=== PATIENT | female | born 1960 | race Caucasian/White ===

== ENCOUNTER 2019-11-23 12:02 | Inpatient (IN) | payer BC ==
[2019-11-23 12:48] LABS: VENOUS BLOOD BASE EXCESS -13.6 mmol/L; VENOUS BLOOD HCO3 12.9 mmol/L (20-32); VENOUS BLOOD PCO2 33.7 mmHg (35-63); VENOUS BLOOD PH 7.2 (7.30-7.42)
[2019-11-23 12:57] LABS: APPEARANCE,URINE CLEAR; BILIRUBIN,URINE NEGATIVE (NEGATIVE); COLOR,URINE YELLOW; GLUCOSE, URINE NEGATIVE (NEGATIVE); KETONES,URINE NEGATIVE (NEGATIVE); LEUKOCYTE ESTERASE,URINE NEGATIVE (NEGATIVE); NITRITE,URINE NEGATIVE (NEGATIVE); PROTEIN,URINE NEGATIVE (NEGATIVE); URINE SPECIFIC GRAVITY 1.011; UROBILINOGEN,URINE NEGATIVE mg/dL (<2.0)
[2019-11-23] MEDS ORDERED: NORMAL SALINE 250 ML IV PRN (13:02)
[2019-11-23] MEDS ORDERED: DEXTROSE 5%-LACTATED RINGERS 1,000 ML IV ONE (13:15)
[2019-11-23] MEDS ORDERED: THIAMINE HCL INJ 200 MG/2 ML VIAL IV ONE (13:23)
[2019-11-23 13:30] LABS: RED BLOOD COUNT 1.13 10^6/uL (3.72-5.28); WHITE BLOOD COUNT 8.9 10^3/uL (4.0-10.5)
[2019-11-23 13:32] LABS: MEAN CORPUSCULAR HEMOGLOBIN 22.9 pg (27.0-33.4); MEAN CORPUSCULAR HGB CONC 29.9 g/dL (32.0-36.0); MEAN CORPUSCULAR VOLUME 77 fl (80-97); PLATELET COUNT 187 10^3/uL (150-450); RED CELL DISTRIBUTION WIDTH 33.1 % (11.5-14.0)
[2019-11-23 13:35] LABS: HEMOGLOBIN 2.6 g/dL (12.0-15.5)
[2019-11-23 13:36] LABS: HEMATOCRIT 8.7 % (36.0-47.0)
[2019-11-23 13:39] LABS: ABSOLUTE LYMPHOCYTES# (MANUAL) 0.8 10^3/uL (0.5-4.7); ABSOLUTE MONOCYTES # (MANUAL) 0.1 10^3/uL (0.1-1.4); BASOPHILS % (MANUAL) 0 % (0-2); EOSINOPHILS % (MANUAL) 0 % (0-6); LYMPHOCYTES % (MANUAL) 9 % (13-45); MONOCYTES % (MANUAL) 1 % (3-13); NUCLEATED RED BLOOD CELLS 5 /100 WBC (0); SEGMENTED NEUTROPHILS % (MAN) 90 % (42-78); TOTAL CELLS COUNTED 100
[2019-11-23 13:40] LABS: ALBUMIN 2.4 g/dL (3.5-5.0); ALKALINE PHOSPHATASE 487 U/L (38-126); ANION GAP 11 (5-19); ASPARTATE AMINO TRANSFERASE 222 U/L (14-36); BILIRUBIN,DIRECT 0.4 mg/dL (0.0-0.4); BILIRUBIN,TOTAL 0.7 mg/dL (0.2-1.3); BLOOD UREA NITROGEN 97 mg/dL (7-20); CARBON DIOXIDE 11 mmol/L (22-30); CHLORIDE 113 mmol/L (98-107); CREATINE KINASE 578 U/L (30-135); GLUCOSE 87 mg/dL (75-110); TOTAL PROTEIN 4.5 g/dL (6.3-8.2)
[2019-11-23 13:43] LABS: ANISOCYTOSIS 4+; BURR CELLS 1+; HYPOCHROMASIA 1+; POIKILOCYTOSIS 2+; SCHISTOCYTES 2+; TARGET CELLS 1+; TEAR DROP CELLS 1+
[2019-11-23 13:44] LABS: PLATELET COMMENT ADEQUATE
[2019-11-23 13:51] LABS: CALCIUM 6.9 mg/dL (8.4-10.2)
--- NOTE | 2019-11-23 14:03 | RADIOLOGY REPORT (SQ) ---
EXAM DESCRIPTION: CHEST SINGLE VIEW IMAGES COMPLETED DATE/TIME: 11/23/2019 1:48 pm REASON FOR STUDY: hypothermia, anemia, UGI bleed COMPARISON: None. EXAM PARAMETERS: NUMBER OF VIEWS: One view. TECHNIQUE: Single frontal radiographic view of the chest acquired. RADIATION DOSE: NA LIMITATIONS: None. FINDINGS: LUNGS AND PLEURA: Lung saenz are hyperexpanded. No consolidation or pleural effusions. No pneumothorax. MEDIASTINUM AND HILAR STRUCTURES: No masses. Contour normal. HEART AND VASCULAR STRUCTURES: Heart is enlarged. No failure. BONES: No acute findings. HARDWARE: None in the chest. OTHER: No other significant finding. IMPRESSION: Cardiomegaly. COPD. No failure or consolidation. TECHNICAL DOCUMENTATION: JOB ID: [id number] 2010 [employer]- All Rights Reserved Reading location - IP/workstation name: ROSE MARY
[2019-11-23] MEDS ORDERED: DEXTROSE 50%-WATER 25 GM/50 ML DISP.SYRIN IV PRN ×2 (17:06)
[2019-11-23] MEDS ORDERED: MAG HYDROX/AL HYDROX/SIMETH SUSP 30 ML UDCUP PO PRN (17:06)
[2019-11-23] MEDS ORDERED: IPRATROPIUM/ALBUTEROL 0.5-2.5 MG/3 ML AMPUL NEB PRN (17:06)
[2019-11-23] MEDS ORDERED: DEXTROSE 5%-LACTATED RINGERS 1,000 ML IV PRN (17:06)
[2019-11-23] MEDS ORDERED: ONDANSETRON HCL INJ/PF 4 MG/2 ML SDV IV PRN (17:06)
[2019-11-23] MEDS ORDERED: GLUCAGON,HUMAN RECOMB 1 MG INJ SUBCUT PRN (17:06)
[2019-11-23] MEDS ORDERED: DEXTROSE 40% GEL 15 GM TUBE PO PRN ×2 (17:06)
[2019-11-23] MEDS ORDERED: ACETAMINOPHEN 650 MG SUPP.RECT PR PRN (17:06)
[2019-11-23] MEDS ORDERED: ACETAMINOPHEN 325 MG TABLET PO PRN (17:06)
[2019-11-23] MEDS ORDERED: NORMAL SALINE 100 ML with PANTOPRAZOLE SODIUM 80 MG IV PRN ×2 (17:37)
--- NOTE | 2019-11-23 17:46 | ER Document Report ---
Entered by RADHA GOMEZ SCRIBE 11/23/19 1218 Acting as scribe for:YADI YARBROUGH MD ED General - General Chief Complaint: Low Blood Sugar Stated Complaint: BLOOD SUGAR ISSUES/ALTERED MENTAL STATUS Time Seen by Provider: 11/23/19 12:10 Information source: Patient, Emergency Med Personnel Notes: This 59-year-old female presents to the emergency department via EMS after a fall about 3 hours ago. EMS reports that patient has been living with her daughter for the past two months and daughter states that patient has been noncompliant with her medication for almost two years. Daughter reports to EMS that over the past two weeks patient has been noticeably weaker. Daughter states that patient has not been able to ambulate on her own. Daughter said that this morning she had to help patient to the commode at around 2AM. Daughter said that the next time she saw the patient, she was on the floor at around 10 AM. Daughter reports that patient was at baseline prior to two weeks ago. At baseline, patient is alert and has a normal gait. EMS states that patient was only responsive to pain and was covered with foul-smelling urine when they arrived. EMS said that patient was verbal but not coherent. Patient states that she is "very hungry" and tired at this time. Past Medical History - General Information source: Patient - Social History Smoking Status: Current Every Day Smoker Cigarette use (# per day): Yes - 1 pack per day Chew tobacco use (# tins/day): No Lives with: Family Family History: Reviewed & Not Pertinent Review of Systems - Review of Systems Constitutional: See HPI, Fever, Weakness EENT: No symptoms reported Cardiovascular: No symptoms reported Respiratory: No symptoms reported Gastrointestinal: No symptoms reported Genitourinary: No symptoms reported Female Genitourinary: No symptoms reported Musculoskeletal: No symptoms reported Skin: No symptoms reported Hematologic/Lymphatic: No symptoms reported Neurological/Psychological: See HPI, Weakness, Gait changes -: Yes All other systems reviewed and negative Physical Exam - Vital signs Vitals: Resp 18 11/23/19 12:24 - General General appearance: Other - Cachectic In distress: Mild - HEENT Head: Normocephalic, Atraumatic Extraocular movements intact: Yes Pupils: PERRL Pharynx: Normal Neck: Normal - Respiratory Respiratory status: No respiratory distress Breath sounds: Normal - Cardiovascular Rhythm: Regular - Abdominal Inspection: Normal Distension: No distension Bowel sounds: Normal Tenderness: Nontender - Back Back: Normal, Nontender - Extremities General upper extremity: Normal inspection, Nontender General lower extremity: Nontender, Edema - Trace pitting 1+ edema - Neurological Cognition: Normal Orientation: AAOx4 - On intial exam was oriented after a few units of blood, patient is now not coherent or oriented. Speech: Normal - nml on initial exam. Now not coherent. - Psychological Associated symptoms: Normal affect, Normal mood - Skin Skin Temperature: Cool - on initial exam was cool to the touch then warm after blood was administered. Skin Moisture: Dry Skin Color: Pale Course - Vital Signs Vital signs: Temp Pulse Resp BP Pulse Ox 98.6 F 62 23 H 133/90 H 100 11/23/19 17:15 11/23/19 14:22 11/23/19 17:15 11/23/19 17:11 11/23/19 17:15 - Laboratory Result Diagrams: 11/23/19 13:07 11/23/19 13:07 Laboratory results interpreted by me: 11/23/19 11/23/19 11/23/19 12:23 12:25 12:25 RBC Hgb Hct MCV MCH MCHC RDW Seg Neuts % (Manual) Lymphocytes % (Manual) Monocytes % (Manual) VBG pH 7.20 L VBG pCO2 33.7 L VBG HCO3 12.9 L Sodium Chloride Carbon Dioxide BUN Creatinine Est GFR ( Amer) Est GFR (MDRD) Non-Af POC Glucose 124 H Calcium AST ALT Alkaline Phosphatase Creatine Kinase Total Protein Albumin Crossmatch See Detail 11/23/19 11/23/19 13:07 13:07 RBC 1.13 L Hgb 2.6 L* Hct 8.7 L* MCV 77 L MCH 22.9 L MCHC 29.9 L RDW 33.1 H Seg Neuts % (Manual) 90 H Lymphocytes % (Manual) 9 L Monocytes % (Manual) 1 L VBG pH VBG pCO2 VBG HCO3 Sodium 134.9 L Chloride 113 H Carbon Dioxide 11 L BUN 97 H Creatinine 1.49 H Est GFR ( Amer) 44 L Est GFR (MDRD) Non-Af 36 L POC Glucose Calcium 6.9 L* AST 222 H ALT 110 H Alkaline Phosphatase 487 H Creatine Kinase 578 H Total Protein 4.5 L Albumin 2.4 L Crossmatch - Diagnostic Test Radiology reviewed: Image reviewed, Reports reviewed - Chest x-ray showed cardiomegaly with COPD - EKG Interpretation by Me EKG shows normal: Sinus rhythm, [place], QRS Complexes. abnormal: Intervals - Borderline prolonged QT interval, ST-T Waves - Nonspecific lateral T abnormalities Rate: Normal - 59 Rhythm: NSR When compared to previous EKG there are: Previous EKG unavailable - Consults Dr. Rachel Time consulted: 14:45 Consulted provider: will come to ER Critical Care Note - Critical Care Note Total time excluding time spent on procedures (mins): 45 Discharge - Discharge Clinical Impression: Hypoglycemia Gastrointestinal tract bleed Qualifiers: GI bleed type/associated pathology: melena Qualified Code(s): K92.1 - Melena Anemia Qualifiers: Anemia type: iron deficiency Iron deficiency anemia type: chronic blood loss Qualified Code(s): D50.0 - Iron deficiency anemia secondary to blood loss (chronic) Hypothermia Qualifiers: Encounter type: initial encounter Qualified Code(s): T68.XXXA - Hypothermia, initial encounter Condition: Stable Disposition: ADMITTED INPATIENT Admitting Provider: Virginie (Hospitalist) Unit Admitted: IMCU I personally performed the services described in the documentation, reviewed and edited the documentation which was dictated to the scribe in my presence, and it accurately records my words and actions.
--- NOTE | 2019-11-23 18:29 | PDOC H&P ---
History of Present Illness Admission Date/PCP: 11/23/19 15:54 Patient complains of: Found down at home History of Present Illness: EARNEST DRAPER is a 59 year old female with a long and very complicated past medical history. This includes perforated ulcer with partial gastrectomy. Partial colectomy. She has had pancreatitis. She was an alcoholic but supposedly stopped drinking in 1999 999. She still smokes 1 pack a day. She has a history of methamphetamine use in the . She abuses aspirin products. She crushes headache tablets that contain caffeine and aspirin and takes 2 of those at bedtime. She was complaining of head and neck pain abdominal pain last week. She has also exhibited severe weight loss. Her weight 12 months ago was 130 pounds. It has continuously trickled down and now she weighs 31 kg. The patient moved from [place] to be with her daughter locally. She has been here for about the last 6 weeks. The and daughter report that the patient refuses to take prescription medications. She hardly uses [id number] products. She has a long history of severe depression and was on Celexa in the past as well as medication for hypertension. She stopped taking those. She went into a deep depression when she found out that her sister had stage IV small cell lung cancer in 2019. Her mother, brother and I believe 2 sisters all have lung cancer. She has been feeling progressively worse over the last week. As noted above she complained of stomach pain as well as headache and neck pain. Evidently she was taking an increased number of the headache pills. Her appetite has been extremely poor. 2 days ago she was found half out of a recliner that she slept in. Today the patient's daughter states that she was sleeping on the couch and this morning she found her on the floor wrapped in a blanket soaked with her own urine. EMS called and they found her to be confused. Her glucose was 26. Evaluation in the emergency department also revealed hypothermia and severe anemia with a hemoglobin of 2.6. She is encephalopathic as well as having elevated transaminases. She is crying out and is unable to give much history. She was started on dextrose containing fluid, is receiving 3 units of packed red blood cells and has a heating blanket in place. She will be admitted to [facility] with an aggressive complex treatment plan. I did have an extensive discussion with the patient's and daughter. Her CODE STATUS will be DNR at this time. Past Medical History Cardiac Medical History: Reports: Hypertension Pulmonary Medical History: Reports: Chronic Obstructive Pulmonary Disease (COPD), Respiratory Failure EENT Medical History: Denies: Ears, Nose, Throat Neurological Medical History: Denies: Hemorrhagic CVA, Ischemic CVA, Seizures Endocrine Medical History: Denies: Diabetes Mellitus Type 1, Diabetes Mellitus Type 2, Hypothyroidism Renal/ Medical History: Denies: Chronic Kidney Disease Malignancy Medical History: Reports: None GI Medical History: Reports: Peptic Ulcer Disease, Other - Pancreatitis Musculoskeltal Medical History: Reports: Arthritis Psychiatric Medical History: Reports: Alcohol Dependency, Depression, Substance Abuse, Tobacco Dependency Hematology: Reports: Anemia Past Surgical History Past Surgical History: Reports: Cholecystectomy, Hysterectomy, Splenectomy, Other - Partial colectomy, partial gastrectomy, oophorectomy Social History Information Source: Relative - and daughter Lives with: Family Smoking Status: Current Every Day Smoker Cigarettes Packs Per Day: 1 Electronic Cigarette use?: No Frequency of Alcohol Use: None - History of severe alcoholism. Stopped 2009 Hx Recreational Drug Use: Yes Drugs: Other - Methamphetamine Hx Prescription Drug Abuse: No - Advance Directive Resuscitation Status: Do Not Resuscitate Surrogate healthcare decision maker:: Lengthy discussion with Sourav and daughter Cris Family History Family History: Malignancy - Multiple relatives with lung cancer, Other - Alcoholism and cirrhosis Parental Family History Reviewed: Yes Children Family History Reviewed: Yes Sibling(s) Family History Reviewed.: Yes Medication/Allergy Home Medications: No Home Medications 11/23/19 Allergies/Adverse Reactions: No Known Allergies Allergy (Unverified 11/23/19 18:58) Review of Systems ROS unobtainable: Due to mental status Physical Exam Vital Signs: Temp Pulse Resp BP Pulse Ox 98.3 F 80 16 135/77 H 100 11/23/19 18:00 11/23/19 17:45 11/23/19 18:00 11/23/19 17:51 11/23/19 18:00 Intake & Output 11/22/19 11/23/19 11/24/19 06:59 06:59 06:59 Intake Total 600 Output Total 400 Balance 200 Weight 31.751 kg General appearance: PRESENT: thin, well-developed, other - Well-developed but severely cachectic 59-year-old female in moderate distress. She looks older than her stated age. Head exam: PRESENT: atraumatic, normocephalic, other - Temporal wasting, sunken eye sockets Eye exam: PRESENT: conjunctiva pale, other - Pupils react to light but patient unable to participate in full eye exam Ear exam: PRESENT: normal external ear exam. ABSENT: bleeding, drainage Mouth exam: PRESENT: dry mucosa, tongue midline Teeth exam: PRESENT: edentulous Neck exam: ABSENT: carotid bruit, JVD, lymphadenopathy, thyromegaly Respiratory exam: PRESENT: clear to auscultation cyrus, prolonged expiratory phas, symmetrical, unlabored. ABSENT: rales, rhonchi, wheezes Cardiovascular exam: PRESENT: RRR, +S1, +S2. ABSENT: diastolic murmur, irregular rhythm, systolic murmur Pulses: PRESENT: normal carotid pulses, normal radial pulses, normal dorsalis pedis pul GI/Abdominal exam: PRESENT: diminished bowel sounds, soft, other - Scaphoid abdomen. ABSENT: distended, guarding, tenderness Rectal exam: PRESENT: deferred, other - Hemoccult positive per emergency department provider Gentrourinary exam: PRESENT: indwelling catheter Extremities exam: ABSENT: joint swelling, pedal edema Musculoskeletal exam: PRESENT: other - Marked muscle wasting. ABSENT: deformity Neurological exam: PRESENT: altered, awake, other - Unable to fully assess. ABS ENT: alert, oriented to person, oriented to place, oriented to time, oriented to situation Psychiatric exam: PRESENT: agitated, unusual affect Skin exam: PRESENT: dry, pallor. ABSENT: jaundice, petechiae, warm Results Laboratory Results: 11/23/19 13:07 11/23/19 13:07 11/23/19 11/23/19 11/23/19 12:25 12:25 12:25 WBC Cancelled RBC Cancelled Hgb Cancelled Hct Cancelled MCV Cancelled MCH Cancelled MCHC Cancelled RDW Cancelled Plt Count Cancelled Seg Neutrophils % Cancelled VBG pH 7.20 L VBG pCO2 33.7 L VBG HCO3 12.9 L VBG Base Excess -13.6 Sodium Cancelled Potassium Cancelled Chloride Cancelled Carbon Dioxide Cancelled Anion Gap Cancelled BUN Cancelled Creatinine Cancelled Est GFR ( Amer) Cancelled Est GFR (Non-Af Amer) Cancelled Glucose Cancelled Calcium Cancelled Magnesium Total Bilirubin Cancelled AST Cancelled Alkaline Phosphatase Cancelled Total Protein Cancelled Albumin Cancelled TSH Urine Color Urine Appearance Urine pH Ur Specific [place] Urine Protein Urine Glucose (UA) Urine Ketones Urine Blood Urine Nitrite Ur Leukocyte Esterase Urine WBC (Auto) Urine RBC (Auto) Blood Type Antibody Screen 11/23/19 11/23/19 11/23/19 12:25 12:25 13:07 WBC 8.9 RBC 1.13 L Hgb 2.6 L* Hct 8.7 L* MCV 77 L MCH 22.9 L MCHC 29.9 L RDW 33.1 H Plt Count 187 Seg Neutrophils % Not Reportable VBG pH VBG pCO2 VBG HCO3 VBG Base Excess Sodium Potassium Chloride Carbon Dioxide Anion Gap BUN Creatinine Est GFR ( Amer) Est GFR (Non-Af Amer) Glucose Calcium Magnesium Total Bilirubin AST Alkaline Phosphatase Total Protein Albumin TSH Urine Color YELLOW Urine Appearance CLEAR Urine pH 5.0 Ur Specific [place] 1.011 Urine Protein NEGATIVE Urine Glucose (UA) NEGATIVE Urine Ketones NEGATIVE Urine Blood NEGATIVE Urine Nitrite NEGATIVE Ur Leukocyte Esterase NEGATIVE Urine WBC (Auto) 1 Urine RBC (Auto) 1 Blood Type A POSITIVE Antibody Screen NEGATIVE 11/23/19 11/23/19 11/23/19 13:07 13:07 13:07 WBC RBC Hgb Hct MCV MCH MCHC RDW Plt Count Seg Neutrophils % VBG pH VBG pCO2 VBG HCO3 VBG Base Excess Sodium 134.9 L Potassium 5.0 Chloride 113 H Carbon Dioxide 11 L Anion Gap 11 BUN 97 H Creatinine 1.49 H Est GFR ( Amer) 44 L Est GFR (Non-Af Amer) Glucose 87 Calcium 6.9 L* Magnesium 2.6 H Total Bilirubin 0.7 AST 222 H Alkaline Phosphatase 487 H Total Protein 4.5 L Albumin 2.4 L TSH 1.87 Urine Color Urine Appearance Urine pH Ur Specific [place] Urine Protein Urine Glucose (UA) Urine Ketones Urine Blood Urine Nitrite Ur Leukocyte Esterase Urine WBC (Auto) Urine RBC (Auto) Blood Type Antibody Screen 11/23/19 11/23/19 11/23/19 12:25 12:25 13:07 Creatine Kinase Cancelled 578 H Troponin I Cancelled 11/23/19 13:07 Creatine Kinase Troponin I < 0.012 Impressions: Chest X-Ray 11/23/19 13:19 IMPRESSION: Cardiomegaly. COPD. No failure or consolidation. Assessment and Plan - Diagnosis (1) Gastrointestinal hemorrhage Qualifiers: GI bleed type/associated pathology: melena Qualified Code(s): K92.1 - Melena Is this a current diagnosis for this admission?: Yes Plan: 11/23/2019 Patient has a history of perforated gastric ulcer with partial gastrectomy. She tends to abuse aspirin-containing products. She still smokes 1 pack of cigarettes daily. She has been eating very little. Most likely source of bleeding upper GI tract. I discussed the case with Dr. Peyton Landry. He will be performing upper endoscopy tomorrow. (2) Acute blood loss anemia Is this a current diagnosis for this admission?: Yes Plan: 11/23/2019 Hemoglobin was 2.6 on admission. I discussed the case with Dr. Carranza. She will be seeing the patient in the morning. We did discuss the addition of certain laboratory studies. This bleeding has likely been ongoing for many months. There may be an iron deficiency component to it. Iron studies are pending. She received 3 units of packed red blood cells. Hemoglobin is below 6 she will receive 2 additional units. (3) Hypoglycemia Is this a current diagnosis for this admission?: Yes Plan: 11/23/2019 The patient has not been eating much at all. She has experienced significant weight loss. She will be getting dextrose containing fluids along with Accu-Cheks and hypoglycemia protocol. (4) Elevated transaminase measurement Is this a current diagnosis for this admission?: Yes Plan: 11/23/2019 The patient has a history of severe alcoholism in the past. She stopped drinking 10 years ago however her reports that she occasionally will bring several bottles of wine. There is likely a component of cirrhosis. We will be scanning the abdominal cavity to further investigate her weight loss considering her strong family history of malignancy. She will be receiving IV fluids, blood and will have serial laboratory studies drawn. (5) Hypocalcemia Is this a current diagnosis for this admission?: Yes Plan: 11/23/2019 Most likely secondary to extremely poor nutritional status. We will check an ionized calcium. We are correcting for her low albumin the serum calcium is not normal. We can provide calcium supplementation if needed. (6) Severe protein-calorie malnutrition Is this a current diagnosis for this admission?: Yes Plan: 11/23/2019 The patient has probably experienced a 30 kg weight loss over the last year according to my discussion with her and daughter. Her BMI is only 15. Her daughter reports that she hardly eats any of her meals. She notes that she has been quite weak and recently has been falling. She has had to help her get up from the toilet. This constellation of findings qualifies for severe protein calorie malnutrition. We will have the dietitian see the patient. If the patient cannot maintain adequate nutrition consider a Dobbhoff tube however we would discuss this with patient and family first (7) Metabolic encephalopathy Is this a current diagnosis for this admission?: Yes Plan: 11/23/2019 Severe metabolic encephalopathy is likely combination of be hypoglycemia, profound anemia and hypothermia. We will continue to monitor and evaluate the patient through her course of treatment. I expect that this will improve. Her did state that she can yell out and behave strangely at home. This may be related to her history of alcoholism but there are too many confounding abnormalities to be sure. (8) Hypothermia Qualifiers: Encounter type: initial encounter Qualified Code(s): T68.XXXA - Hypothermia, initial encounter Is this a current diagnosis for this admission?: Yes Plan: 11/23/2019 The hypothermia is likely due to the decreased muscle mass. She was found down and her creatinine kinase is slightly elevated. It was unclear but she may have been found down without a blanket on. She was soaked in urine admits certainly could have a cooling effect. She is under a warming blanket and I have asked them to use the fluid warmer with her intravenous fluids. In addition she will receive stress doses of Solu-Cortef and I have ordered a random cortisol level. (9) Acute kidney injury Is this a current diagnosis for this admission?: Yes Plan: 11/23/2019 The serum creatinine is up. I do not have old blood work to compare. It is likely related to poor fluid and nutrition intake. She also has a slightly elev ated creatinine phosphokinase which likely reflects mild rhabdomyolysis. We will administer IV fluids and reassess renal function regularly. (10) Rhabdomyolysis Qualifiers: Rhabdomyolysis type: traumatic Encounter type: initial encounter Qualified Code(s): T79.6XXA - Traumatic ischemia of muscle, initial encounter Is this a current diagnosis for this admission?: Yes Plan: 11/23/2019 The patient was found down and this is likely the source of the rhabdo. We will monitor serum creatinine kinase levels. With IV fluids this should improve. (11) Cachexia Is this a current diagnosis for this admission?: Yes Plan: 11/23/2019 There is a very strong family history of malignancy. Mother, brother and medical week 2 of her sisters all have had lung cancer. Hematology/oncology will be seeing the patient for the severe anemia but underlying malignancy is clearly a concern. Further evaluation to follow. The registered dietitian will also be reviewing the case. (12) Tobacco dependence due to cigarettes Is this a current diagnosis for this admission?: Yes Plan: 11/23/2019 At some point consider nicotine patch. At this point it is clinically irrelevant due to the severity of the patient's illness - Time Time Spent with patient: 35 or more minutes Medications reviewed and adjusted accordingly: Yes - Inpatient Certification Based on my medical assessment, after consideration of the patient's comorbidities, presenting symptoms, or acuity I expect that the services needed warrant INPATIENT care.: Yes I certify that my determination is in accordance with my understanding of Medicare's requirements for reasonable and necessary INPATIENT services [42 CFR 412.3e].: Yes Medical Necessity: Need Close Monitoring Due to Risk of Patient Decompensation, Need For IV Fluids, Need For Continuous Telemetry Monitoring, Need for Pain Control, Need for IV Antibiotics, Need for Surgery, Risk of Complication if Not Cared For in Hospital Post Hospital Care: D/C Outsole Leveler Documentation
[2019-11-23] MEDS ORDERED: ALBUMIN HUMAN 12.5 GM/50 ML RTUINJ IV ONE (20:00)
[2019-11-23] MEDS: MORPHINE SULFATE 10 MG/ML INJ IV PRN (20:12)
--- NOTE | 2019-11-23 20:22 | PDOC CONSULTATION ---
Consultation Consult Date: 11/23/19 Attending physician:: VITOR RODRIGUEZ Provider Consulted: MAGDALENO TALAVERA Consult reason:: anemia History of Present Illness Admission Date/PCP: 11/23/19 15:54 History of Present Illness: EARNEST DRAPER is a 59 year old female This 59-year-old female presents to the emergency department via EMS after a fall about 3 hours ago. EMS reports that patient has been living with her daughter for the past two months and daughter states that patient has been noncompliant with her medication for almost two years. Daughter reports to EMS that over the past two weeks patient has been noticeably weaker. Daughter states that patient has not been able to ambulate on her own. Daughter said that this morning she had to help patient to the commode at around 2AM. Daughter said that the next time she saw the patient, she was on the floor at around 10 AM. Daughter reports that patient was at baseline prior to two weeks ago. At baseline, patient is alert and has a normal gait. EMS states that patient was only responsive to pain and was covered with foul-smelling urine when they arrived. EMS said that patient was verbal but not coherent. Patient states that she is "very hungry" and tired at this time Social History Smoking Status: Current Every Day Smoker Family History Parental Family History Reviewed: No Children Family History Reviewed: NA Sibling(s) Family History Reviewed.: NA Medication/Allergy Home Medications: No Home Medications 11/23/19 Allergies/Adverse Reactions: No Known Allergies Allergy (Unverified 11/23/19 18:58) Review of Systems ROS unobtainable: Other - mental status Physical Exam Vital Signs: Temp Pulse Resp BP Pulse Ox 98.6 F 62 23 H 133/90 H 100 11/23/19 17:15 11/23/19 14:22 11/23/19 17:15 11/23/19 17:11 11/23/19 17:15 Intake & Output 11/22/19 11/23/19 11/24/19 06:59 06:59 06:59 Intake Total 600 Output Total 400 Balance 200 Weight 31.751 kg General appearance: PRESENT: disheveled, thin, other - cachetic Head exam: PRESENT: atraumatic Eye exam: PRESENT: EOMI, PERRLA Ear exam: PRESENT: normal external ear exam Mouth exam: PRESENT: dry mucosa Teeth exam: PRESENT: poor dentation Neck exam: PRESENT: full ROM Respiratory exam: PRESENT: clear to auscultation cyrus Cardiovascular exam: PRESENT: RRR Pulses: PRESENT: normal femoral pulses, normal dorsalis pedis pul Vascular exam: PRESENT: normal capillary refill GI/Abdominal exam: PRESENT: other - scaphoid Rectal exam: PRESENT: heme (+) stool Gentrourinary exam: PRESENT: indwelling catheter Extremities exam: PRESENT: full ROM Musculoskeletal exam: PRESENT: full ROM Neurological exam: PRESENT: altered, awake Skin exam: PRESENT: dry Results Laboratory Results: 11/23/19 13:07 11/23/19 13:07 11/23/19 11/23/19 11/23/19 12:25 12:25 12:25 WBC Cancelled RBC Cancelled Hgb Cancelled Hct Cancelled MCV Cancelled MCH Cancelled MCHC Cancelled RDW Cancelled Plt Count Cancelled Seg Neutrophils % Cancelled VBG pH 7.20 L VBG pCO2 33.7 L VBG HCO3 12.9 L VBG Base Excess -13.6 Sodium Cancelled Potassium Cancelled Chloride Cancelled Carbon Dioxide Cancelled Anion Gap Cancelled BUN Cancelled Creatinine Cancelled Est GFR ( Amer) Cancelled Est GFR (Non-Af Amer) Cancelled Glucose Cancelled Calcium Cancelled Total Bilirubin Cancelled AST Cancelled Alkaline Phosphatase Cancelled Total Protein Cancelled Albumin Cancelled TSH Urine Color Urine Appearance Urine pH Ur Specific [place] Urine Protein Urine Glucose (UA) Urine Ketones Urine Blood Urine Nitrite Ur Leukocyte Esterase Urine WBC (Auto) Urine RBC (Auto) Blood Type Antibody Screen 11/23/19 11/23/19 11/23/19 12:25 12:25 13:07 WBC 8.9 RBC 1.13 L Hgb 2.6 L* Hct 8.7 L* MCV 77 L MCH 22.9 L MCHC 29.9 L RDW 33.1 H Plt Count 187 Seg Neutrophils % Not Reportable VBG pH VBG pCO2 VBG HCO3 VBG Base Excess Sodium Potassium Chloride Carbon Dioxide Anion Gap BUN Creatinine Est GFR ( Amer) Est GFR (Non-Af Amer) Glucose Calcium Total Bilirubin AST Alkaline Phosphatase Total Protein Albumin TSH Urine Color YELLOW Urine Appearance CLEAR Urine pH 5.0 Ur Specific [place] 1.011 Urine Protein NEGATIVE Urine Glucose (UA) NEGATIVE Urine Ketones NEGATIVE Urine Blood NEGATIVE Urine Nitrite NEGATIVE Ur Leukocyte Esterase NEGATIVE Urine WBC (Auto) 1 Urine RBC (Auto) 1 Blood Type A POSITIVE Antibody Screen NEGATIVE 11/23/19 11/23/19 13:07 13:07 WBC RBC Hgb Hct MCV MCH MCHC RDW Plt Count Seg Neutrophils % VBG pH VBG pCO2 VBG HCO3 VBG Base Excess Sodium 134.9 L Potassium 5.0 Chloride 113 H Carbon Dioxide 11 L Anion Gap 11 BUN 97 H Creatinine 1.49 H Est GFR ( Amer) 44 L Est GFR (Non-Af Amer) Glucose 87 Calcium 6.9 L* Total Bilirubin 0.7 AST 222 H Alkaline Phosphatase 487 H Total Protein 4.5 L Albumin 2.4 L TSH 1.87 Urine Color Urine Appearance Urine pH Ur Specific [place] Urine Protein Urine Glucose (UA) Urine Ketones Urine Blood Urine Nitrite Ur Leukocyte Esterase Urine WBC (Auto) Urine RBC (Auto) Blood Type Antibody Screen 11/23/19 11/23/19 11/23/19 12:25 12:25 13:07 Creatine Kinase Cancelled 578 H Troponin I Cancelled 11/23/19 13:07 Creatine Kinase Troponin I < 0.012 Impressions: Chest X-Ray 11/23/19 13:19 IMPRESSION: Cardiomegaly. COPD. No failure or consolidation. Assessment & Plan - Plan Summary Plan Summary: cachectic female presented with wt loss hypogylcemic, sever anemia with possible malignancy hx of gastric ulcers hx of partial gastrectomy hx of colonic surgery pt has been taking crushed asa for pain plan upper endoscopy to r/o ongoing bleed will schedule in am. pt needs resuscitation with blood products tonight.
--- NOTE | 2019-11-23 20:25 | ADVANCED CARE ---
- Diagnosis (1) Gastrointestinal hemorrhage Diagnosis Current: Yes (2) Acute blood loss anemia Diagnosis Current: Yes (3) Hypoglycemia Diagnosis Current: Yes (4) Elevated transaminase measurement Diagnosis Current: Yes (5) Hypocalcemia Diagnosis Current: Yes (6) Severe protein-calorie malnutrition Diagnosis Current: Yes (7) Metabolic encephalopathy Diagnosis Current: Yes (8) Hypothermia Diagnosis Current: Yes (9) Acute kidney injury Diagnosis Current: Yes (10) Rhabdomyolysis Diagnosis Current: Yes (11) Cachexia Diagnosis Current: Yes (12) Tobacco dependence due to cigarettes Diagnosis Current: Yes Attendance: During the patient's cognitive status and due to coping restrictions this conversation was had with the patient's , Sourav, as well as the patient's daughter Cris. Resuscitation Status: Do Not Resuscitate Discussion: We had a long discussion reviewing the patient's most recent medical history including the multiple surgeries and abuse of recreational drugs, alcohol and tobacco. She has undergone multiple surgeries including partial gastrectomy for perforated ulcer, partial colectomy as well as cholecystectomy and splenectomy. Agreeability time was spent discussing the patient's prognosis and what reasonable measures to be undertaken. Investigative procedures such as the endoscopy to identify the source of bleeding, CT scanning to look for other pathology as well as transfusions and lab work are perfectly reasonable. It was felt that after the procedure carries more risks than possible benefits it would need to be discussed at length prior. While the family wants to see if the patient survives, they know her prognosis is poor and they do not want to have her suffer needlessly. To that end, with the understanding what happens during resuscitation, they have decided not to perform CPR or intubate the patient. There was consensus with the patient's and her daughter during our conversation. Care Planning Goals: To carry out any plan consisting of diagnostic endeavors and therapeutic measures to provide a successful outcome to this critical illness. If it is felt that the patient's best course of action was comfort care then the family certainly would consider this. We actually even discussed options of hospice house and home hospice. Document(s) Completed: None Time Spent: 25
[2019-11-23] MEDS: HYDROCORTISONE SOD SUCCINATE INJ/PF 100 MG/2 ML SDV IV SCH (21:06)
--- NOTE | 2019-11-23 22:26 | EKG REPORT ---
SEVERITY:- ABNORMAL ECG - SINUS RHYTHM NONSPECIFIC T ABNORMALITIES, LATERAL LEADS BORDERLINE PROLONGED QT INTERVAL : Confirmed by: Hilda Soni MD 23-Nov-2019 22:26:22
[2019-11-23 22:33] LABS: HEMATOCRIT 30.7 % (36.0-47.0); MEAN CORPUSCULAR HEMOGLOBIN 26.3 pg (27.0-33.4); MEAN CORPUSCULAR HGB CONC 32.6 g/dL (32.0-36.0); PLATELET COUNT 165 10^3/uL (150-450); RED CELL DISTRIBUTION WIDTH 18.7 % (11.5-14.0); WHITE BLOOD COUNT 13.2 10^3/uL (4.0-10.5)
[2019-11-23 22:38] LABS: ABSOLUTE RETICS # 0.062 10^6/uL (0.028-0.122); RETICULOCYTE COUNT (AUTO) 1.64 % (0.66-2.85)
[2019-11-23 22:53] LABS: IRON(TIBC) 157.4 ug/dL (37-170)
[2019-11-23 23:05] LABS: MEAN CORPUSCULAR VOLUME 81 fl (80-97)
[2019-11-23 23:39] LABS: ALBUMIN 2.6 g/dL (3.5-5.0); ALKALINE PHOSPHATASE 855 U/L (38-126); ANION GAP 10 (5-19); ASPARTATE AMINO TRANSFERASE 428 U/L (14-36); BILIRUBIN,DIRECT 1.5 mg/dL (0.0-0.4); BILIRUBIN,TOTAL 2.5 mg/dL (0.2-1.3); BLOOD UREA NITROGEN 93 mg/dL (7-20); CARBON DIOXIDE 14 mmol/L (22-30); CHLORIDE 114 mmol/L (98-107); POTASSIUM 5.5 mmol/L (3.6-5.0); TOTAL PROTEIN 4.9 g/dL (6.3-8.2)
[2019-11-23 23:46] LABS: PREALBUMIN 7.3 mg/dL (17.6-36.0)
[2019-11-23 23:57] LABS: CALCIUM 6.8 mg/dL (8.4-10.2)
[2019-11-23 23:58] LABS: GLUCOSE 47 mg/dL (75-110)
[2019-11-24] MEDS: MORPHINE SULFATE 10 MG/ML INJ IV PRN ×2 (00:02→05:17)
[2019-11-24 02:32] LABS: HEMATOCRIT 24.7 % (36.0-47.0); HEMOGLOBIN 8.3 g/dL (12.0-15.5); MEAN CORPUSCULAR HEMOGLOBIN 26.7 pg (27.0-33.4); MEAN CORPUSCULAR HGB CONC 33.6 g/dL (32.0-36.0); MEAN CORPUSCULAR VOLUME 79 fl (80-97); PLATELET COUNT 132 10^3/uL (150-450); RED CELL DISTRIBUTION WIDTH 18.4 % (11.5-14.0); WHITE BLOOD COUNT 11.8 10^3/uL (4.0-10.5)
[2019-11-24 02:45] LABS: ALBUMIN 2.3 g/dL (3.5-5.0); ALKALINE PHOSPHATASE 871 U/L (38-126); ANION GAP 8 (5-19); ASPARTATE AMINO TRANSFERASE 336 U/L (14-36); BILIRUBIN,DIRECT 1.2 mg/dL (0.0-0.4); BILIRUBIN,TOTAL 2.1 mg/dL (0.2-1.3); BLOOD UREA NITROGEN 89 mg/dL (7-20); CARBON DIOXIDE 15 mmol/L (22-30); CHLORIDE 117 mmol/L (98-107); CHOLESTEROL 57.73 mg/dL (0-200); CREATINE KINASE 526 U/L (30-135); GLUCOSE 103 mg/dL (75-110); PHOSPHORUS 7.2 mg/dL (2.5-4.5); POTASSIUM 4.9 mmol/L (3.6-5.0); TOTAL PROTEIN 4.5 g/dL (6.3-8.2)
[2019-11-24 02:55] LABS: TRIGLYCERIDES < 10 mg/dL (<150)
[2019-11-24 02:56] LABS: PREALBUMIN 6.8 mg/dL (17.6-36.0)
[2019-11-24 03:08] LABS: DIRECT LDL < 30 mg/dL (<100)
[2019-11-24 03:10] LABS: CALCIUM 6.8 mg/dL (8.4-10.2)
[2019-11-24] MEDS: HYDROCORTISONE SOD SUCCINATE INJ/PF 100 MG/2 ML SDV IV SCH ×2 (05:16→15:34)
[2019-11-24 06:43] LABS: ARTERIAL BLOOD BASE EXCESS -9.4 mmol/L; ARTERIAL BLOOD H2CO3 0.96 mmol/L (1.05-1.35); ARTERIAL BLOOD HCO3 15.9 mmol/L (20-24); ARTERIAL BLOOD O2 SATURATION 87.5 % (94-98); ARTERIAL BLOOD PH 7.31 (7.35-7.45); ARTERIAL BLOOD PO2 56.7 mmHg (80-100); ARTERIAL BLOOD TOTAL CO2 16.8 mmol/L (21-25)
[2019-11-24 06:44] LABS: ARTERIAL BLOOD FIO2 21%
--- NOTE | 2019-11-24 07:35 | PDOC CONSULTATION ---
Consultation Consult Date: 11/24/19 Provider Consulted: KOREY ROGERS Consult reason:: Hematology/Oncology consultation was requested for patient with profound weight loss and anemia. History of Present Illness Admission Date/PCP: 11/23/19 15:54 History of Present Illness: Patient is unable to give history, but according to medical records: EARNEST DRAPER is a 59 year old female with a long and very complicated past medical history. This includes perforated ulcer with partial gastrectomy. Partial colectomy. She has had pancreatitis. She was an alcoholic but supposedly stopped drinking in 1999. She still smokes 1 pack a day. She has a history of methamphetamine use in the . She abuses aspirin products. She crushes headache tablets that contain caffeine and aspirin and takes 2 of those at bedtime. She was complaining of head and neck pain abdominal pain last week. She has also exhibited severe weight loss. Her weight 12 months ago was 130 pounds. It has continuously trickled down and now she weighs 31 kg. The patient moved from [place] to be with her daughter locally. She has been here for about the last 6 weeks. The and daughter report that the patient refuses to take prescription medications. She hardly uses [id number] products. She has a long history of severe depression and was on Celexa in the past as well as medication for hypertension. She stopped taking those. She went into a deep depression when she found out that her sister had stage IV small cell lung cancer in 2019. Her mother, brother and I believe 2 sisters all have lung cancer. She has been feeling progressively worse over the last week. As noted above she complained of stomach pain as well as headache and neck pain. Evidently she was taking an increased number of the headache pills. Her appetite has been extremely poor. 2 days ago she was found half out of a recliner that she slept in. Today the patient's daughter states that she was sleeping on the couch and this morning she found her on the floor wrapped in a blanket soaked with her own urine. EMS called and they found her to be confused. Her glucose was 26. Evaluation in the emergency department also revealed hypothermia and severe anemia with a hemoglobin of 2.6. She is encephalopathic as well as having elevated transaminases. She is crying out and is unable to give much history. She was started on dextrose containing fluid, is receiving 3 units of packed red blood cells and has a heating blanket in place. She will be admitted to [facility] with an aggressive complex treatment plan. I did have an extensive discussion with the patient's and daughter. Her CODE STATUS will be DNR at this time. Overnight, nurses report not much change. Her HGB has improved with transfusion but she has not been awake enough to eat or drink. Her temperature has improved. She is obviously malnourished and her ferritin is quite low. Past Medical History Past Medical History: Med history, surgical family, and social history are all per prior medical records. As per previous medical records Cardiac Medical History: Reports: Hypertension Pulmonary Medical History: Reports: Chronic Obstructive Pulmonary Disease (COPD), Respiratory Failure EENT Medical History: Denies: Ears, Nose, Throat Neurological Medical History: Denies: Hemorrhagic CVA, Ischemic CVA, Seizures Endocrine Medical History: Denies: Diabetes Mellitus Type 1, Diabetes Mellitus Type 2, Hypothyroidism Renal/ Medical History: Denies: Chronic Kidney Disease Malignancy Medical History: Reports: None GI Medical History: Reports: Peptic Ulcer Disease, Other - Pancreatitis Musculoskeltal Medical History: Reports: Arthritis Psychiatric Medical History: Reports: Alcohol Dependency, Depression, Substance Abuse, Tobacco Dependency Hematology: Reports: Anemia Past Surgical History Past Surgical History: Reports: Cholecystectomy, Hysterectomy, Splenectomy, Ot her - Partial colectomy, partial gastrectomy, oophorectomy Social History Lives with: Family Smoking Status: Current Every Day Smoker Cigarettes Packs Per Day: 1 Electronic Cigarette use?: No Frequency of Alcohol Use: None - History of severe alcoholism. Stopped 2009 Hx Recreational Drug Use: Yes Drugs: Other - Methamphetamine Hx Prescription Drug Abuse: No - Advance Directive Resuscitation Status: Do Not Resuscitate Family History Family History: Malignancy - Multiple relatives with lung cancer, Other - Alcoholism and cirrhosis Parental Family History Reviewed: Yes Children Family History Reviewed: No Sibling(s) Family History Reviewed.: Yes Medication/Allergy Home Medications: No Home Medications 11/23/19 Allergies/Adverse Reactions: No Known Allergies Allergy (Unverified 11/23/19 18:58) Review of Systems ROS unobtainable: Due to mental status Physical Exam Vital Signs: Temp Pulse Resp BP Pulse Ox 95.8 F L 73 16 145/85 H 99 11/24/19 03:42 11/24/19 03:42 11/24/19 03:42 11/24/19 03:42 11/24/19 03:42 Intake & Output 11/23/19 11/24/19 11/25/19 06:59 06:59 06:59 Intake Total 950 Output Total 675 Balance 275 Weight 331.1 kg 31.1 kg Exam: Very thin, Cachectic, 59 year old female. SHe opens her eyes, and thrashes, but makes no meaningful sounds or movements for me. Eye exam: PRESENT: PERRLA Mouth exam: PRESENT: dry mucosa Teeth exam: PRESENT: poor dentation Neck exam: ABSENT: lymphadenopathy, tenderness Respiratory exam: PRESENT: clear to auscultation cyrus, unlabored Cardiovascular exam: PRESENT: RRR. ABSENT: systolic murmur GI/Abdominal exam: PRESENT: firm. ABSENT: distended, tenderness Extremities exam: ABSENT: pedal edema Musculoskeletal exam: PRESENT: normal inspection Neurological exam: PRESENT: altered. ABSENT: oriented to person, oriented to place, oriented to time, oriented to situation Psychiatric exam: PRESENT: flat affect Focused psych exam: PRESENT: restlessness Skin exam: PRESENT: other - Multiple areas of excoriation/erythema as well as dry, cracked skin. Results Laboratory Results: 11/24/19 02:24 11/24/19 02:24 11/23/19 11/23/19 11/23/19 12:25 12:25 12:25 WBC Cancelled RBC Cancelled Hgb Cancelled Hct Cancelled MCV Cancelled MCH Cancelled MCHC Cancelled RDW Cancelled Plt Count Cancelled Seg Neutrophils % Cancelled Retic Count (auto) Carbonic Acid HCO3/H2CO3 Ratio ABG pH ABG pCO2 ABG pO2 ABG HCO3 ABG O2 Saturation ABG Base Excess VBG pH 7.20 L VBG pCO2 33.7 L VBG HCO3 12.9 L VBG Base Excess -13.6 FiO2 Sodium Cancelled Potassium Cancelled Chloride Cancelled Carbon Dioxide Cancelled Anion Gap Cancelled BUN Cancelled Creatinine Cancelled Est GFR ( Amer) Cancelled Est GFR (Non-Af Amer) Cancelled Glucose Cancelled Calcium Cancelled Ionized Calcium Dee Phosphorus Magnesium Iron TIBC % Saturation Transferrin Ferritin Total Bilirubin Cancelled AST Cancelled Alkaline Phosphatase Cancelled Ammonia Total Protein Cancelled Albumin Cancelled Prealbumin Triglycerides Cholesterol LDL Cholesterol Direct VLDL Cholesterol HDL Cholesterol Vitamin B12 Folate TSH Urine Color Urine Appearance Urine pH Ur Specific [place] Urine Protein Urine Glucose (UA) Urine Ketones Urine Blood Urine Nitrite Ur Leukocyte Esterase Urine WBC (Auto) Urine RBC (Auto) Blood Type Antibody Screen 11/23/19 11/23/19 11/23/19 12:25 12:25 13:07 WBC 8.9 RBC 1.13 L Hgb 2.6 L* Hct 8.7 L* MCV 77 L MCH 22.9 L MCHC 29.9 L RDW 33.1 H Plt Count 187 Seg Neutrophils % Not Reportable Retic Count (auto) Carbonic Acid HCO3/H2CO3 Ratio ABG pH ABG pCO2 ABG pO2 ABG HCO3 ABG O2 Saturation ABG Base Excess VBG pH VBG pCO2 VBG HCO3 VBG Base Excess FiO2 Sodium Potassium Chloride Carbon Dioxide Anion Gap BUN Creatinine Est GFR ( Amer) Est GFR (Non-Af Amer) Glucose Calcium Ionized Calcium Dee Phosphorus Magnesium Iron TIBC % Saturation Transferrin Ferritin Total Bilirubin AST Alkaline Phosphatase Ammonia Total Protein Albumin Prealbumin Triglycerides Cholesterol LDL Cholesterol Direct VLDL Cholesterol HDL Cholesterol Vitamin B12 Folate TSH Urine Color YELLOW Urine Appearance CLEAR Urine pH 5.0 Ur Specific [place] 1.011 Urine Protein NEGATIVE Urine Glucose (UA) NEGATIVE Urine Ketones NEGATIVE Urine Blood NEGATIVE Urine Nitrite NEGATIVE Ur Leukocyte Esterase NEGATIVE Urine WBC (Auto) 1 Urine RBC (Auto) 1 Blood Type A POSITIVE Antibody Screen NEGATIVE 11/23/19 11/23/19 11/23/19 13:07 13:07 13:07 WBC RBC Hgb Hct MCV MCH MCHC RDW Plt Count Seg Neutrophils % Retic Count (auto) Carbonic Acid HCO3/H2CO3 Ratio ABG pH ABG pCO2 ABG pO2 ABG HCO3 ABG O2 Saturation ABG Base Excess VBG pH VBG pCO2 VBG HCO3 VBG Base Excess FiO2 Sodium 134.9 L Potassium 5.0 Chloride 113 H Carbon Dioxide 11 L Anion Gap 11 BUN 97 H Creatinine 1.49 H Est GFR ( Amer) 44 L Est GFR (Non-Af Amer) Glucose 87 Calcium 6.9 L* Ionized Calcium Dee Phosphorus Magnesium 2.6 H Iron TIBC % Saturation Transferrin Ferritin Total Bilirubin 0.7 AST 222 H Alkaline Phosphatase 487 H Ammonia Total Protein 4.5 L Albumin 2.4 L Prealbumin Triglycerides Cholesterol LDL Cholesterol Direct VLDL Cholesterol HDL Cholesterol Vitamin B12 Folate TSH 1.87 Urine Color Urine Appearance Urine pH Ur Specific [place] Urine Protein Urine Glucose (UA) Urine Ketones Urine Blood Urine Nitrite Ur Leukocyte Esterase Urine WBC (Auto) Urine RBC (Auto) Blood Type Antibody Screen 11/23/19 11/23/19 11/23/19 22:19 22:19 22:19 WBC RBC Hgb Hct MCV MCH MCHC RDW Plt Count Seg Neutrophils % Retic Count (auto) 1.64 Carbonic Acid HCO3/H2CO3 Ratio ABG pH ABG pCO2 ABG pO2 ABG HCO3 ABG O2 Saturation ABG Base Excess VBG pH VBG pCO2 VBG HCO3 VBG Base Excess FiO2 Sodium Potassium Chloride Carbon Dioxide Anion Gap BUN Creatinine Est GFR ( Amer) Est GFR (Non-Af Amer) Glucose Calcium Ionized Calcium Dee Phosphorus Magnesium Iron 157.4 TIBC 381 % Saturation 41 Transferrin 257.25 Ferritin 20.60 Total Bilirubin AST Alkaline Phosphatase Ammonia Total Protein Albumin Prealbumin Triglycerides Cholesterol LDL Cholesterol Direct VLDL Cholesterol HDL Cholesterol Vitamin B12 > 1000.0 H Folate 18.70 TSH Urine Color Urine Appearance Urine pH Ur Specific [place] Urine Protein Urine Glucose (UA) Urine Ketones Urine Blood Urine Nitrite Ur Leukocyte Esterase Urine WBC (Auto) Urine RBC (Auto) Blood Type Antibody Screen 11/23/19 11/23/19 11/23/19 22:19 23:10 23:10 WBC 13.2 H RBC 3.80 Hgb 10.0 L D Hct 30.7 L MCV 81 D MCH 26.3 L MCHC 32.6 RDW 18.7 H Plt Count 165 Seg Neutrophils % Retic Count (auto) Carbonic Acid HCO3/H2CO3 Ratio ABG pH ABG pCO2 ABG pO2 ABG HCO3 ABG O2 Saturation ABG Base Excess VBG pH VBG pCO2 VBG HCO3 VBG Base Excess FiO2 Sodium 137.6 Potassium 5.5 H Chloride 114 H Carbon Dioxide 14 L Anion Gap 10 BUN 93 H Creatinine 1.42 H Est GFR ( Amer) 46 L Est GFR (Non-Af Amer) Glucose 47 L Calcium 6.8 L* Ionized Calcium Dee 0.98 L Phosphorus Magnesium Iron TIBC % Saturation Transferrin Ferritin Total Bilirubin 2.5 H AST 428 H Alkaline Phosphatase 855 H Ammonia Total Protein 4.9 L Albumin 2.6 L Prealbumin 7.3 L Triglycerides Cholesterol LDL Cholesterol Direct VLDL Cholesterol HDL Cholesterol Vitamin B12 Folate TSH Urine Color Urine Appearance Urine pH Ur Specific [place] Urine Protein Urine Glucose (UA) Urine Ketones Urine Blood Urine Nitrite Ur Leukocyte Esterase Urine WBC (Auto) Urine RBC (Auto) Blood Type Antibody Screen 11/23/19 11/24/19 11/24/19 23:10 02:24 02:24 WBC 11.8 H RBC 3.10 L Hgb 8.3 L Hct 24.7 L MCV 79 L MCH 26.7 L MCHC 33.6 RDW 18.4 H Plt Count 132 L Seg Neutrophils % Retic Count (auto) Carbonic Acid HCO3/H2CO3 Ratio ABG pH ABG pCO2 ABG pO2 ABG HCO3 ABG O2 Saturation ABG Base Excess VBG pH VBG pCO2 VBG HCO3 VBG Base Excess FiO2 Sodium 140.2 Potassium 4.9 Chloride 117 H Carbon Dioxide 15 L Anion Gap 8 BUN 89 H Creatinine 1.45 H Est GFR ( Amer) 45 L Est GFR (Non-Af Amer) Glucose 103 Calcium 6.8 L* Ionized Calcium Dee Phosphorus 7.2 H Magnesium 2.5 H Iron TIBC % Saturation Transferrin Ferritin Total Bilirubin 2.1 H AST 336 H Alkaline Phosphatase 871 H Ammonia 13.6 Total Protein 4.5 L Albumin 2.3 L Prealbumin 6.8 L Triglycerides < 10 Cholesterol 57.73 LDL Cholesterol Direct < 30 VLDL Cholesterol 2.0 L HDL Cholesterol 57 Vitamin B12 Folate TSH Urine Color Urine Appearance Urine pH Ur Specific [place] Urine Protein Urine Glucose (UA) Urine Ketones Urine Blood Urine Nitrite Ur Leukocyte Esterase Urine WBC (Auto) Urine RBC (Auto) Blood Type Antibody Screen 11/24/19 06:20 WBC RBC Hgb Hct MCV MCH MCHC RDW Plt Count Seg Neutrophils % Retic Count (auto) Carbonic Acid 0.96 L HCO3/H2CO3 Ratio 16:1 ABG pH 7.31 L ABG pCO2 32.0 L ABG pO2 56.7 L ABG HCO3 15.9 L ABG O2 Saturation 87.5 L ABG Base Excess -9.4 VBG pH VBG pCO2 VBG HCO3 VBG Base Excess FiO2 21% Sodium Potassium Chloride Carbon Dioxide Anion Gap BUN Creatinine Est GFR ( Amer) Est GFR (Non-Af Amer) Glucose Calcium Ionized Calcium Dee Phosphorus Magnesium Iron TIBC % Saturation Transferrin Ferritin Total Bilirubin AST Alkaline Phosphatase Ammonia Total Protein Albumin Prealbumin Triglycerides Cholesterol LDL Cholesterol Direct VLDL Cholesterol HDL Cholesterol Vitamin B12 Folate TSH Urine Color Urine Appearance Urine pH Ur Specific [place] Urine Protein Urine Glucose (UA) Urine Ketones Urine Blood Urine Nitrite Ur Leukocyte Esterase Urine WBC (Auto) Urine RBC (Auto) Blood Type Antibody Screen 11/23/19 11/23/19 11/23/19 12:25 12:25 13:07 Creatine Kinase Cancelled 578 H Troponin I Cancelled 11/23/19 11/24/19 13:07 02:24 Creatine Kinase 526 H Troponin I < 0.012 Impressions: Chest X-Ray 11/23/19 13:19 IMPRESSION: Cardiomegaly. COPD. No failure or consolidation. Status: Image reviewed by me Assessment & Plan - Diagnosis (1) Anemia Qualifiers: Anemia type: iron deficiency Iron deficiency anemia type: chronic blood loss Qualified Code(s): D50.0 - Iron deficiency anemia secondary to blood loss (chronic) Is this a current diagnosis for this admission?: Yes Plan: She has heme+ stool and long history of ASA abuse. Her ferritin is quite low. She has received 3 units pRBCs. I would hold off further treatment for the ane manuel right now and see if her HGB is able to be maintained. I do not believe this is a hemolytic anemia as much as bone marrow failure due to malnutrition. More likely elevated LDH is due to rhabdo. However, if her HGB falls <8, I would again transfuse. (2) Cachexia Is this a current diagnosis for this admission?: Yes Plan: Obviously, nutrition consult will be important to help prevent refeeding syndrome. She is at high risk for Lung cancer and GI cancers, so CT C/A/P with IV contrast, when possible would be helpful. (3) Metabolic encephalopathy Is this a current diagnosis for this admission?: Yes Plan: Unknown cause. Consider CT with contrast or MRI of the brain at some point. (4) Severe protein-calorie malnutrition Is this a current diagnosis for this admission?: Yes Plan: As above. I understand that the family is open to considering Hospice admission. However, Failure to thrive is not a valid Hospice diagnosis. Encephalopathy could be, but I would prefer to see if we can figure out what is the underlying cause. We also need to discuss PEG tube and artificial nutrition options with the family if patient's mental status does not improve. - Plan Summary Plan Summary: Thank you for this consultation. I will be happy to continue to follow her with you. Please call with any concerns. Patient was discussed with Dr. Rachel. I am happy to arrange a family meeting once we have more information.
[2019-11-24] MEDS ORDERED: PROPOFOL INJ 200 MG/20 ML VIAL IV ONE (08:51)
[2019-11-24] MEDS ORDERED: THIAMINE HCL 100 MG in NORMAL SALINE 50 ML IV SCH (10:00)
[2019-11-24 10:24] LABS: PATH REVIEW PATHOLOGIST REVIEWED
[2019-11-24] MEDS ORDERED: MORPHINE SULFATE 10 MG/ML INJ IV PRN (12:56)
[2019-11-24] MEDS ORDERED: MORPHINE SULFATE 10 MG/ML INJ ONE (12:57)
[2019-11-24] MEDS ORDERED: LORAZEPAM INJ 2 MG/1 ML VIAL ONE (13:23)
[2019-11-24 14:53] VITALS: BP 145/79
--- NOTE | 2019-11-24 17:23 | Death Summary ---
Summary Date : 11/24/19 Time of :: 16:48 Autopsy: No Resuscitation Status: Comfort Measures Only - Final Diagnosis (1) Acute blood loss anemia Is this a current diagnosis for this admission?: Yes (2) Acute kidney injury Is this a current diagnosis for this admission?: Yes (3) Cachexia Is this a current diagnosis for this admission?: Yes (4) Elevated transaminase measurement Is this a current diagnosis for this admission?: Yes (5) Gastrointestinal hemorrhage Is this a current diagnosis for this admission?: Yes (6) Hypocalcemia Is this a current diagnosis for this admission?: Yes (7) Hypoglycemia Is this a current diagnosis for this admission?: Yes (8) Hypothermia Is this a current diagnosis for this admission?: Yes (9) Metabolic encephalopathy Is this a current diagnosis for this admission?: Yes (10) Rhabdomyolysis Is this a current diagnosis for this admission?: Yes (11) Severe protein-calorie malnutrition Is this a current diagnosis for this admission?: Yes (12) Tobacco dependence due to cigarettes Is this a current diagnosis for this admission?: Yes Hospital Course:: [employer]ER is a 59 year old female with a long and very complicated past medical history. This includes perforated ulcer with partial gastrectomy. Partial colectomy. She has had pancreatitis. She was an alcoholic but supposedly stopped drinking in 1999 999. She still smokes 1 pack a day. She has a history of methamphetamine use in the . She abuses aspirin products. She crushes headache tablets that contain caffeine and aspirin and takes 2 of those at bedtime. She was complaining of head and neck pain abdominal pain last week. She has also exhibited severe weight loss. Her weight 12 months ago was 130 pounds. It has continuously trickled down and now she weighs 31 kg. The patient moved from [place] to be with her daughter locally. She has been here for about the last 6 weeks. The and daughter report that the patient refuses to take prescription medications. She hardly uses [id number] products. She has a long history of severe depression and was on Celexa in the past as well as medication for hypertension. She stopped taking those. She went into a deep depression when she found out that her sister had stage IV small cell lung cancer in 2019. Her mother, brother and I believe 2 sisters all have lung cancer. She has been feeling progressively worse over the last week. As noted above she complained of stomach pain as well as headache and neck pain. Evidently she was taking an increased number of the headache pills. Her appetite has been extremely poor. 2 days ago she was found half out of a recliner that she slept in. Today the patient's daughter states that she was sleeping on the couch and this morning she found her on the floor wrapped in a blanket soaked with her own urine. EMS called and they found her to be confused. Her glucose was 26. Evaluation in the emergency department also revealed hypothermia and severe anemia with a hemoglobin of 2.6. She is encephalopathic as well as having elevated transaminases. She is crying out and is unable to give much history. She was started on dextrose containing fluid, is receiving 3 units of packed red blood cells and has a heating blanket in place. She will be admitted to [facility] with an aggressive complex treatment plan. I did have an extensive discussion with the patient's and daughter. Her CODE STATUS will be DNR at this time. Her hemoglobin came up appropriately she remained encephalopathic. An attempt was made to do an EGD, but the patient was vomiting at the time the procedure was planned and it was felt that it would not be safe to do the procedure at this time. This woman was extremely and chronically ill, and I had multiple long discussions with her and daughter, and ultimately she was made comfort measures only. Her family was allowed to visit. She at 1648 hrs.
== END 2019-11-24 18:17 | disposition expired | DRG 377 ==
LOC: ER 12:02 → EH 15:54 → 3W 18:36
PROVIDERS: ADMIT Hospitalist; ATTEND Hospitalist
PROC: 30233N1 Transfusion of Nonautologous Red Blood Cells into Peripheral Vein, Percutaneous Approach (ICD-10-PCS; principal; 2019-11-23)
DX: K92.1 Melena (principal); E43 Unspecified severe protein-calorie malnutrition; G93.41 Metabolic encephalopathy; N17.9 Acute kidney failure, unspecified; R64 Cachexia; D62 Acute posthemorrhagic anemia; Z68.1 Body mass index [BMI] 19.9 or less, adult; E83.51 Hypocalcemia; F17.210 Nicotine dependence, cigarettes, uncomplicated; Z20.828 Contact with and (suspected) exposure to other viral communicable diseases; E16.2 Hypoglycemia, unspecified; R74.0 Nonspecific elevation of levels of transaminase and lactic acid dehydrogenase [LDH]; F10.21 Alcohol dependence, in remission; R68.0 Hypothermia, not associated with low environmental temperature; T79.6XXA Traumatic ischemia of muscle, initial encounter; X58.XXXA Exposure to other specified factors, initial encounter; W19.XXXA Unspecified fall, initial encounter; F55.8 Abuse of other non-psychoactive substances; Z66 Do not resuscitate; Z53.09 Procedure and treatment not carried out because of other contraindication; F32.9 Major depressive disorder, single episode, unspecified; I10 Essential (primary) hypertension; J44.9 Chronic obstructive pulmonary disease, unspecified; M19.90 Unspecified osteoarthritis, unspecified site; T14.8XXA Other injury of unspecified body region, initial encounter; Z87.11 Personal history of peptic ulcer disease; Z90.3 Acquired absence of stomach [part of]; Z80.1 Family history of malignant neoplasm of trachea, bronchus and lung; Z91.81 History of falling; Y92.019 Unspecified place in single-family (private) house as the place of occurrence of the external cause; Z91.14 Patient's other noncompliance with medication regimen; Z90.49 Acquired absence of other specified parts of digestive tract
CPT/HCPCS: 36415; 36430; 36600; 71045; 80053; 80061; 81001; 82140; 82270; 82330; 82533; 82550; 82607; 82728; 82746; 82803; 82962; 83010; 83540; 83550; 83615; 83735; 84100; 84134; 84443; 84466; 84484; 85025; 85027; 85045; 86850; 86900; 86901; 86920; 87070; 87635; 93005; 93010; 96361; 96374; 99291; J1720; J2060; J2270; J2704; J3411; J3490; J7121; J7620; P9016; P9047